=== PATIENT | male | born 1980 | race Caucasian/White ===

== ENCOUNTER 2016-12-28 21:58 | Observation (INO) | payer SELFPAY ==
[~2016-12-28] VITALS: Ht 172.7 cm; Wt 90.0 kg
[~2016-12-28 21:58] MED LIST: AMOX875 PO
[2016-12-28] MEDS ORDERED: SODIUM CHLORIDE 0.9% FLUSH 5 ML FLUSH IV FLUSH PRN (22:00)
[2016-12-28] MEDS ORDERED: SODIUM CHLOR 0.9% 1000 ML INJ 1,000 ML IV SCH (22:00)
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
--- NOTE | 2016-12-28 22:19 | RADRPT ---
EXAM DATE/TIME: 12/28/2016 22:04 [facility] COMPARISON: No previous studies available for comparison. INDICATIONS : Sycopal episode and shortness of breath. MEDICAL HISTORY : None. SURGICAL HISTORY : None. ENCOUNTER: Initial ACUITY: 1 day PAIN SCORE: 0/10 LOCATION: chest FINDINGS: A single view of the chest demonstrates the lungs to be symmetrically aerated without evidence of mas s, infiltrate or effusion. The cardiomediastinal contours are unremarkable. Osseous structures are intact. CONCLUSION: No evidence of acute cardiopulmonary disease. Pete Clement MD on December 28, 2016 at 22:18 Board Certified Radiologist. This report was verified electronically.
[2016-12-28 22:47] LABS: BASOPHIL # 0.3 TH/MM3 (0-0.2); BASOPHIL % 2.7 % (0.0-2.0); EOSINOPHIL % 0.2 % (0.0-4.0); HEMATOCRIT 48.8 % (39.0-51.0); HEMO FLAGS DIFF FINAL; LYMPH % 9.4 % (9.0-44.0); LYMPHOCYTE # 1.1 TH/MM3 (1.0-4.8); MEAN CELL VOLUME 89.8 FL (80.0-100.0); MEAN CORPUSCULAR HEMOGLOBIN 30.3 PG (27.0-34.0); MEAN CORPUSCULAR HGB CONC 33.7 % (32.0-36.0); MONO % 3.8 % (0.0-8.0); NEUT % 83.9 % (16.0-70.0); PLATELET COUNT 251 TH/MM3 (150-450); RED BLOOD COUNT 5.44 MIL/MM3 (4.50-5.90); RED CELL DISTRIBUTION WIDTH 13.2 % (11.6-17.2); WHITE BLOOD COUNT 11.9 TH/MM3 (4.0-11.0)
[2016-12-28 22:48] VITALS: BP 132/82; PULSE 96; RESP 22; TEMP 98.4; O2SAT 98
[2016-12-28 22:54] VITALS: BP 132/82; PULSE 96; RESP 16; TEMP 98.4; O2SAT 98
[2016-12-28 23:01] LABS: ALT (GPT) 30 U/L (12-78); ANION GAP 19 MEQ/L (5-15); AST (GOT) 24 U/L (15-37); BICARBONATE 16.6 MEQ/L (21.0-32.0); BLOOD UREA NITROGEN 14 MG/DL (7-18); CHLORIDE 102 MEQ/L (98-107); GLOMERULAR FILTRATION RATE 56 ML/MIN (>89); POTASSIUM 3.6 MEQ/L (3.5-5.1); SODIUM (NA) 138 MEQ/L (136-145)
[2016-12-28 23:02] LABS: APTT (PATIENT) 25.6 SEC (24.3-30.1); PROTHROMBIN TIME - PATIENT 11.6 SEC (9.8-11.6)
[2016-12-28 23:11] LABS: ALCOHOL LESS THAN 3 MG/DL (0-5); ALKALINE PHOSPHATASE 65 U/L (45-117); CREATINE KINASE 162 U/L (39-308); TOTAL BILIRUBIN ADULT 0.5 MG/DL (0.2-1.0)
--- NOTE | 2016-12-28 23:13 | RADRPT ---
EXAM DATE/TIME: 12/28/2016 22:48 [facility] COMPARISON: No previous studies available for comparison. INDICATIONS : Altered mental status. RADIATION DOSE: 56.35 CTDIvol (mGy) MEDICAL HISTORY : gallstones SURGICAL HISTORY : None. ENCOUNTER: Initial ACUITY: 1 day PAIN SCALE: 0/10 LOCATION: cranial TECHNIQUE: Multiple contiguous axial images were obtained of the head. Using automated exposure control and adj ustment of the mA and/or kV according to patient size, radiation dose was kept as low as reasonably a chievable to obtain optimal diagnostic quality images. DICOM format image data is available electro nically for review and comparison. FINDINGS: CEREBRUM: The ventricles are normal for age. No evidence of midline shift, mass lesion, hemorrhage or acute in farction. No extra-axial fluid collections are seen. POSTERIOR FOSSA: The cerebellum and brainstem are intact. The 4th ventricle is midline. The cerebellopontine angle i s unremarkable. EXTRACRANIAL: The visualized portion of the orbits is intact. SKULL: The calvaria is intact. No evidence of skull fracture. CONCLUSION: 1. No acute intracranial abnormalities. Mucosal thickening right maxillary sinus. Paxton Fam MD on December 28, 2016 at 23:07 Board Certified Radiologist. This report was verified electronically.
[2016-12-28 23:15] LABS: BLOOD GAS BASE EXCESS -2.1 mmol/L (-2-2); BLOOD GAS CARBOXYHEMOGLOBIN 1.1 % (0-4); BLOOD GAS HCO3 21 mmol/L (22-26); BLOOD GAS METHEMOGLOBIN 0.7 % (0-2); BLOOD GAS O2 HGB SATURATION 95 % (90-100); BLOOD GAS OXYGEN CONTENT 21.2 Vol % (12.0-20.0); BLOOD GAS PCO2 32 mmHg (38-42); BLOOD GAS PO2 87 mmHG (61-120); BLOOD GAS TOTAL HGB 15.8 G/DL (12.0-16.0); TEMP CORR TO 98.6
[2016-12-28 23:16] LABS: CRITICAL VALUE NO
[2016-12-28 23:17] LABS: DRAW SITE RT RADIAL; FIO2 21 %; NUMBER OF ARTERIAL PUNCTURES 1; OXYGEN DEVICE RA; STAT YES; ULNAR PULSE PRESENT
[2016-12-28] MEDS ORDERED: SODIUM CHLOR 0.9% 1000 ML INJ 1,000 ML IV ONE (23:30)
[2016-12-29] MEDS ORDERED: NALOXONE HCL 0.4 MG/ML AMP IV PUSH PRN
[2016-12-29] MEDS ORDERED: LORazepam 2 MG/ML VIAL IV PUSH PRN
[2016-12-29] MEDS ORDERED: SODIUM CHLORIDE 0.9% FLUSH 10 ML FLUSH IV FLUSH PRN
[2016-12-29] MEDS: SODIUM CHLOR 0.9% 1000 ML INJ 1,000 ML IV SCH ×2 (01:32→09:08)
[2016-12-29 02:02] VITALS: BP 137/80; PULSE 80; RESP 16; O2SAT 97
[2016-12-29 02:12] LABS: LACTIC ACID GHOST NOT REPORTABLE
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
[2016-12-29 06:43] VITALS: PULSE 69
[2016-12-29 07:26] VITALS: BP 118/64; PULSE 75; RESP 16; TEMP 98.4; O2SAT 97
[2016-12-29 08:15] VITALS: PULSE 58
[2016-12-29] MEDS ORDERED: SODIUM CHLORIDE 0.9% FLUSH 10 ML FLUSH IV FLUSH SCH (09:00)
[2016-12-29 12:03] VITALS: BP 144/89; PULSE 79; RESP 16; TEMP 98.1; O2SAT 98
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
[2016-12-29 13:03] LABS: AUTOMATED NEUTROPHIL # 8.6 TH/MM3 (1.8-7.7); BASOPHIL % 0.4 % (0.0-2.0); EOSINOPHIL # 0.1 TH/MM3 (0-0.4); EOSINOPHIL % 0.6 % (0.0-4.0); HEMATOCRIT 46.3 % (39.0-51.0); HEMO FLAGS DIFF FINAL; LYMPH % 15.8 % (9.0-44.0); LYMPHOCYTE # 1.8 TH/MM3 (1.0-4.8); MEAN CELL VOLUME 89.2 FL (80.0-100.0); MEAN CORPUSCULAR HEMOGLOBIN 30.1 PG (27.0-34.0); MEAN CORPUSCULAR HGB CONC 33.7 % (32.0-36.0); MONO % 10.2 % (0.0-8.0); PLATELET COUNT 220 TH/MM3 (150-450); RED BLOOD COUNT 5.19 MIL/MM3 (4.50-5.90); RED CELL DISTRIBUTION WIDTH 13.1 % (11.6-17.2); WHITE BLOOD COUNT 11.7 TH/MM3 (4.0-11.0)
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
[2016-12-29 13:24] LABS: POTASSIUM 3.4 MEQ/L (3.5-5.1)
[2016-12-29] MEDS ORDERED: POTASSIUM CHLORIDE 20 MEQ CONTROLLED RELEASE TAB PO ONE (13:45)
--- NOTE | 2016-12-29 21:35 | MG ---
cc: BRIAN NARAYAN Lab No: [id number] Date: 12/29/16 Age: 36 Sex: M Race: HISTORY Possible seizure activity, gallstones, concussion. DESCRIPTION A 9-10 Hz 60 microvolt symmetric posterior rhythm is seen. The recording overall is synchronous and symmetric and appears quite normal. Photic stimulation was performed without significant posterior driving. ___ is performed with good effort without change in the background. IMPRESSION Normal awake EEG. No evidence for focal or diffuse abnormality. Brian Narayan MD DJM/LEROY /9:10 PM /9:29 PM
== END 2016-12-29 14:19 | disposition home or self-care (01) ==
LOC: NEPE 21:58 → NEDA 12-29 00:07 → NEPGCP 12-29 05:20
PROVIDERS: ADMIT Hospitalist; ATTEND Hospitalist
DX: G40.409 Other generalized epilepsy and epileptic syndromes, not intractable, without status epilepticus (principal); E87.2 Acidosis; E86.0 Dehydration; F13.230 Sedative, hypnotic or anxiolytic dependence with withdrawal, uncomplicated; F07.81 Postconcussional syndrome; G43.909 Migraine, unspecified, not intractable, without status migrainosus; R06.02 Shortness of breath; R55 Syncope and collapse
CPT/HCPCS: 36600; 70450; 71010; 80048; 80053; 80307; 82550; 82805; 83605; 84443; 85025; 85610; 85730; 95819; 96360; 96361; 99285; G0378; J7030

== ENCOUNTER 2017-09-11 23:26 | Inpatient (IN) | payer OTHER ==
[~2017-09-11] VITALS: Ht 172.7 cm; Wt 77.9 kg
[2017-09-11] MEDS ORDERED: SODIUM CHLOR 0.9% 1000 ML INJ 1,000 ML IV SCH (23:28)
[2017-09-11] MEDS ORDERED: SODIUM CHLORIDE 0.9% FLUSH 10 ML FLUSH IV FLUSH PRN (23:30)
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
[2017-09-11 23:55] VITALS: BP 96/61; PULSE 85; RESP 16; TEMP 97.5; O2SAT 95
--- NOTE | 2017-09-11 23:55 | RADRPT ---
EXAM DATE: 09/11/2017 11:51 PM EDT AGE/SEX: 37 years / Male INDICATIONS: Possible overdose. CLINICAL DATA: This is the patient's initial encounter. Patient reports that signs and symptoms have been present for 1 day and indicates a pain score of Nonresponsive. MEDICAL/SURGICAL HISTORY: Non-responsive. Non-responsive. COMPARISON: No prior exams available for comparison. FINDINGS: Single AP view of the chest. The lungs are clear. Cardiomediastinal silhouette within norm al limits. No evidence of pleural effusion or pneumothorax. CONCLUSION: No acute cardiopulmonary disease identified. Electronically signed by: Reza Smith MD 09/11/2017 11:54 PM EDT
[2017-09-12] VITALS (51 sets, daily range): BP systolic 79–116; BP diastolic 41–76; PULSE 66–90; RESP 9–25; TEMP 97.5–98.7; O2SAT 92–99
[2017-09-12 00:28] LABS: ACETAMINOPHEN LESS THAN 10.0 MCG/ML (10.0-30.0); ALBUMIN 3.6 GM/DL (3.4-5.0); ALKALINE PHOSPHATASE 65 U/L (45-117); ALT (GPT) 56 U/L (12-78); AST (GOT) 56 U/L (15-37); BLOOD UREA NITROGEN 17 MG/DL (7-18); CALCIUM 8.5 MG/DL (8.5-10.1); CHLORIDE 102 MEQ/L (98-107); GLOMERULAR FILTRATION RATE 67 ML/MIN (>89); GLUCOSE,RANDOM 161 MG/DL (74-106); MAGNESIUM 2.3 MG/DL (1.5-2.5); SODIUM (NA) 137 MEQ/L (136-145); TOTAL BILIRUBIN ADULT 0.3 MG/DL (0.2-1.0); TOTAL PROTEIN 7.3 GM/DL (6.4-8.2); TROPONIN I LESS THAN 0.02 NG/ML (0.02-0.05)
[2017-09-12 00:35] LABS: AUTOMATED NEUTROPHIL # 6.6 TH/MM3 (1.8-7.7); BASOPHIL # 0.1 TH/MM3 (0-0.2); BASOPHIL % 0.6 % (0.0-2.0); EOSINOPHIL # 0.2 TH/MM3 (0-0.4); EOSINOPHIL % 1.9 % (0.0-4.0); HEMATOCRIT 41.4 % (39.0-51.0); HEMOGLOBIN 13.9 GM/DL (13.0-17.0); LYMPH % 15.8 % (9.0-44.0); LYMPHOCYTE # 1.4 TH/MM3 (1.0-4.8); MEAN CELL VOLUME 90.9 FL (80.0-100.0); MEAN CORPUSCULAR HEMOGLOBIN 30.4 PG (27.0-34.0); MEAN CORPUSCULAR HGB CONC 33.5 % (32.0-36.0); MEAN PLATELET VOLUME 8.1 FL (7.0-11.0); MONO % 5.6 % (0.0-8.0); MONOCYTE # 0.5 TH/MM3 (0-0.9); NEUT % 76.1 % (16.0-70.0); PLATELET COUNT 214 TH/MM3 (150-450); RED BLOOD COUNT 4.56 MIL/MM3 (4.50-5.90); RED CELL DISTRIBUTION WIDTH 12.5 % (11.6-17.2); WHITE BLOOD COUNT 8.8 TH/MM3 (4.0-11.0)
[2017-09-12 00:51] LABS: INTERNATIONAL NORMALIZED RATIO 1.2 RATIO; PROTHROMBIN TIME - PATIENT 11.8 SEC (9.8-11.6)
[2017-09-12] MEDS ORDERED: NALOXONE HCL 0.4 MG/ML AMP IV PUSH ONE (01:00)
[2017-09-12] MEDS ORDERED: SODIUM CHLOR 0.9% 1000 ML INJ 1,000 ML IV ONE ×3 (01:00→02:00)
--- NOTE | 2017-09-12 01:18 | RADRPT ---
EXAM DATE: 09/12/2017 12:49 AM EDT AGE/SEX: 37 years / Male INDICATIONS: Altered mental status; slurred speech. Post code; possible overdose. CLINICAL DATA: This is the patient's initial encounter. Patient reports that signs and symptoms have been present for 1 day and indicates a pain score of 0/10. MEDICAL/SURGICAL HISTORY: . Gallstones None. RADIATION DOSE: 52.06 CTDI (mGy) [place] [facility] [place] 12/28/[place]. . TECHNIQUE: CT of the head without contrast. Using automated exposure control and adjustment of the mA and/or kV according to patient size, radiation dose was kept as low as reasonably achievable to ob tain optimal diagnostic quality images. FINDINGS: Cerebrum: The ventricles are normal for age. No evidence of midline shift, mass lesion, hemorrhage or acute infarction. No extraaxial fluid collections are seen. Posterior Fossa: The cerebellum and brainstem are intact. The 4th ventricle is midline. The cerebe llopontine angle is unremarkable. Extracranial: Partial opacification of the ethmoid sinuses bilaterally and the right maxillary sinus . Skull: The calvaria is intact. No evidence of skull fracture. CONCLUSION: 1. No acute intracranial findings. 2. Right-sided maxillary and bilateral ethmoid sinus disease. Electronically signed by: Reza Smith MD 09/12/2017 1:16 AM EDT
[2017-09-12 01:51] LABS: BILIRUBIN, URINE NEG (NEG); BLOOD, URINE NEG (NEG); GLUCOSE,URINE NEG (NEG); KETONE, URINE NEG (NEG); NITRITE,URINE NEG (NEG); URINE COLOR YELLOW (YELLW/STRAW); URINE LEUKOCYTE ESTERASE NEG (NEG)
[2017-09-12 02:00] LABS: RBC, URINE 0-2 /hpf (0-3); SQUAMOUS EPITHELIAL CELL URINE 0-5 /hpf (0-5); WBC, URINE 0-2 /hpf (0-5)
[2017-09-12] MEDS ORDERED: RESP: ALBUTEROL 2.5 MG/IPRATROPIUM 0.5 MG NEB (PRN) INH (04:15)
[2017-09-12] MEDS ORDERED: ACETAMINOPHEN 325 MG TAB PO PRN (04:15)
[2017-09-12] MEDS ORDERED: SENNOSIDES 8.6 MG TAB PO PRN (04:15)
[2017-09-12] MEDS ORDERED: NURSING INFORMATION XX SCH (04:15)
[2017-09-12] MEDS ORDERED: LACTULOSE SYRUP 20 GM/30 ML CUP PO PRN (04:15)
[2017-09-12] MEDS ORDERED: BISACODYL 10 MG SUPP RECTAL PRN (04:15)
[2017-09-12] MEDS ORDERED: CHLORHEXIDINE GLUCONATE 2 % 1 PACK (2 CLOTHS) TOP PRN (04:15)
[2017-09-12] MEDS ORDERED: MAGNESIUM HYDROXIDE SUSP 30 ML CUP PO PRN (04:15)
[2017-09-12] MEDS ORDERED: ONDANSETRON HCL 4 MG/2 ML VIAL IV PUSH PRN (04:15)
[2017-09-12] MEDS ORDERED: SODIUM CHLORIDE 0.9% FLUSH 10 ML FLUSH IV FLUSH PRN (04:15)
[2017-09-12] MEDS: SODIUM CHLOR 0.9% 1000 ML INJ 1,000 ML IV SCH ×2 (04:28→11:24)
[2017-09-12] MEDS: ENOXAPARIN SODIUM 40 MG/0.4 ML SYRINGE SQ SCH (06:02)
--- NOTE | 2017-09-12 07:49 | HHI.HP ---
HPI Service Critical Care Medicine Primary Care Physician No Primary Care Physician Admission Diagnosis polysubstance overdose; benzodiazepine OD; hypotension Diagnosis: Travel History International Travel<30 Days: No Contact w/Intl Traveler <30 Da: No Traveled to Known Affected Are: No History of Present Illness HPI This is a 37-year-old male that presented to the ED from home after reportedly being found unresponsive by his spouse (who is a RN), per Dr. Barakat's report she stated that he was" blue" she began CPR for several minutes and called 911. The patient received Narcan upon EMS arrival and responded fromGCS 3T to GCS 15, O2 saturations improved to 96- 97%. The patient reports that he remembers smoking weed and then awakening with multiple people around him. Upon admission the patient denied any patient denies any opiate or narcotic use. Patient reported that in August he was given a prescription for narcotic status post surgery and has not taken all of these medications and has several of the oxycodone left. Patient states he does not use heroin. Patient is adamant that he only smoked marijuana. Patient here speaks with slurred speech denies any alcohol consumption. Per paramedics after 1.2 mg of Narcan patient's GCS improved from 3-15 and has reportedly been cooperative. In route to the hospital patient did require supplemental oxygen as his saturations started to trend downwards towards 90-92%, and he subsequently became lethargic. Patient reportedly had been found unresponsive by spouse and fire department initially noted pupils to be pinpoint. The patient informed the ED physician Dr. Barakat that he had taken some friend's Klonopin. In the ED laboratory , patient received 3 L IV fluids and imaging studies were performed. Urine toxicity was positive for benzodiazepines, cocaine and cannabinoids. The patient continued to be extremely lethargic with sonorous ventilation, and concern for possible intubation. Critical care medicine was consulted. Upon my arrival to the ED the patient was noted to have O2 saturation of 87-88% on 6 L nasal cannula, the patient was arousable with stimulation, noted slurred speech. History PFSH Past Medical History Narrative Medical Gallstones; repair of arterial injury left hand; marijuana use; nursing notes reviewed Blood Disorders: No Cardiovascular Problems: No Diminished Hearing: No Endocrine: No Gastrointestinal Disorders: Yes (GALLSTONES) Genitourinary: No Musculoskeletal: No Neurologic: No Psychiatric: No Reproductive: No Respiratory: No Immunizations Current: No Past Surgical History Other Surgery: Yes (ARTERIAL REPAIR FINGER LACERATION) Social History Alcohol Use: No Tobacco Use: No Substance Use: No Allergies-Medications Allergies-Medications (Allergen,Severity, Reaction): Coded Allergies: No Known Allergies (Verified Allergy, Unknown, 09/12/17) Reported Meds & Prescriptions Reported Meds & Active Scripts Active Active Prescriptions or Reported Medications Unobtainable ROS Review of Systems Except as stated in HPI: all other systems reviewed are Neg General / Constitutional: No: Fever, Chills Eyes: No: Visual changes HENT: No: Headaches, Congestion Cardiovascular: No: Chest Pain or Discomfort Respiratory: No: Shortness of Breath Gastrointestinal: No: Vomiting, Abdominal Pain Genitourinary: No: Flank Pain Musculoskeletal: No: Myalgias, Arthralgias Skin: No Rash Neurologic: No: Weakness, Dizziness, Syncope, Focal Abnormalities, Coordination Problem Psychiatric: No: Anxiety Endocrine: No: Heat Intolerance, Cold Intolerance Hematologic/Lymphatic: No: Easy Bruising Physical Exam Vital Signs Vital Signs Date Time Temp Pulse Resp B/P (MAP) Pulse Ox O2 Delivery O2 Flow Rate FiO2 09/12/17 07:18 71 18 97/59 (72) 94 Room Air 09/12/17 06:46 72 16 93/56 (68) 93 Nasal Cannula 6.00 09/12/17 06:30 71 16 91/61 (71) 92 Nasal Cannula 6.00 09/12/17 06:15 72 14 101/60 (74) 94 Nasal Cannula 6.00 09/12/17 06:00 90 14 112/71 (85) 92 Nasal Cannula 4.00 09/12/17 05:45 66 14 90/76 (81) 94 Nasal Cannula 4.00 09/12/17 05:30 68 16 94/63 (73) 94 Nasal Cannula 4.00 09/12/17 05:16 68 16 98/61 (73) 94 Nasal Cannula 4.00 09/12/17 05:00 69 16 105/52 (69) 93 Nasal Cannula 4.00 09/12/17 04:45 68 16 88/60 (69) 93 Nasal Cannula 4.00 09/12/17 04:30 68 16 98/62 (74) 94 Nasal Cannula 4.00 09/12/17 04:15 70 16 79/61 (67) 94 Nasal Cannula 4.00 09/12/17 04:00 72 16 96/58 (71) 94 Nasal Cannula 4.00 09/12/17 03:45 72 16 90/59 (69) 94 Nasal Cannula 4.00 09/12/17 03:30 73 16 88/61 (70) 94 Nasal Cannula 4.00 09/12/17 03:16 74 14 97/53 (68) 92 Nasal Cannula 3.00 09/12/17 03:01 76 14 89/60 (70) 94 Nasal Cannula 2.00 09/12/17 02:47 74 16 97/69 (78) 96 Nasal Cannula 2.00 09/12/17 02:31 77 14 90/69 (76) 96 Nasal Cannula 2.00 09/12/17 02:16 84 14 97/64 (75) 97 Nasal Cannula 2.00 09/12/17 01:55 76 14 85/55 (65) 99 Nasal Cannula 2.00 80/60 (67) 09/12/17 01:33 96/60 (72) 09/12/17 01:08 74 14 85/45 (58) 96 Nasal Cannula 2.00 09/12/17 01:00 75 14 80/41 (54) 97 Nasal Cannula 2.00 09/12/17 00:58 76 14 85/55 (65) 93 Nasal Cannula 2.00 09/12/17 00:16 16 93 Room Air 09/12/17 00:00 92/54 (67) 86/56 (66) 09/11/17 23:55 Nasal Cannula 2.00 09/11/17 23:55 97.5 85 16 96/61 (73) 95 Laboratory Laboratory Tests Test 09/11/17 23:38 09/12/17 00:15 09/12/17 01:40 09/12/17 06:13 White Blood Count 8.8 Red Blood Count 4.56 Hemoglobin 13.9 Hematocrit 41.4 Mean Corpuscular Volume 90.9 Mean Corpuscular Hemoglobin 30.4 Mean Corpuscular Hemoglobin Concent 33.5 Red Cell Distribution Width 12.5 Platelet Count 214 Mean Platelet Volume 8.1 Neutrophils (%) (Auto) 76.1 Lymphocytes (%) (Auto) 15.8 Monocytes (%) (Auto) 5.6 Eosinophils (%) (Auto) 1.9 Basophils (%) (Auto) 0.6 Neutrophils # (Auto) 6.6 Lymphocytes # (Auto) 1.4 Monocytes # (Auto) 0.5 Eosinophils # (Auto) 0.2 Basophils # (Auto) 0.1 CBC Comment DIFF FINAL Differential Comment Prothrombin Time 11.8 Prothromb Time International Ratio 1.2 Activated Partial Thromboplast Time 25.5 Blood Urea Nitrogen 17 Creatinine 1.20 Random Glucose 161 Total Protein 7.3 Albumin 3.6 Calcium Level 8.5 Magnesium Level 2.3 Alkaline Phosphatase 65 Aspartate Amino Transf (AST/SGOT) 56 Alanine Aminotransferase (ALT/SGPT) 56 Total Bilirubin 0.3 Sodium Level 137 Potassium Level 4.6 Chloride Level 102 Carbon Dioxide Level 27.0 Anion Gap 8 Estimat Glomerular Filtration Rate 67 Ammonia 31 Troponin I LESS THAN 0.02 LESS THAN 0.02 Salicylates Level 2.6 Acetaminophen Level LESS THAN 10.0 Ethyl Alcohol Level LESS THAN 3 Lactic Acid Level 1.6 Urine Color YELLOW Urine Turbidity CLEAR Urine pH 6.0 Urine Specific [place] 1.025 Urine Protein NEG Urine Glucose (UA) NEG Urine Ketones NEG Urine Occult Blood NEG Urine Nitrite NEG Urine Bilirubin NEG Urine Urobilinogen 0.2 Urine Leukocyte Esterase NEG Urine RBC 0-2 Urine WBC 0-2 Urine Squamous Epithelial Cells 0-5 Urine Bacteria NONE Microscopic Urinalysis Comment CULT NOT INDICATED Urine Opiates Screen NEG Urine Barbiturates Screen NEG Urine Amphetamines Screen NEG Urine Benzodiazepines Screen POS Urine Cocaine Screen POS Urine Cannabinoids Screen POS Date/Time Source Procedure Growth Status 09/11/17 00:15 Blood Peripheral Aerobic Blood Culture Pending Received 09/11/17 00:15 Blood Peripheral Anaerobic Blood Culture Pending Received Result Diagram: 09/11/[id number]/11/172337 Imaging Last Impressions Head CT 09/12/172327 Signed Impressions: CONCLUSION: 1. No acute intracranial findings. 2. Right-sided maxillary and bilateral ethmoid sinus disease. Chest X-Ray 09/11/172327 Signed Impressions: CONCLUSION: No acute cardiopulmonary disease identified. Septic Shock Reassessment Septic shock perfusion: reassessment completed Caprini VTE Risk Assessment Caprini VTE Risk Assessment: Mod/High Risk (score >= 2) Caprini Risk Assessment Model Point Value = 1 Point Value = 2 Point Value = 3 Point Value = 5 Age 41-60 Minor surgery BMI > 25 kg/m2 Swollen legs Varicose veins or History of unexplained or recurrent spontaneous Oral contraceptives or hormone replacement Sepsis (< 1 month) Serious lung disease, including pneumonia (< 1 month) Abnormal pulmonary function Acute myocardial infarction Congestive heart failure (< 1 month) History of inflammatory bowel disease Medical patient at bed rest Age 61-74 Arthroscopic surgery Major open surgery (> 45 min) Laparoscopic surgery (> 45 min) Malignancy Confined to bed (> 72 hours) Immobilizing plaster cast Central venous access Age >= 75 History of VTE Family history of VTE Factor V Leiden Prothrombin [id number] Lupus anticoagulant Anticardiolipin antibodies Elevated serum homocysteine Heparin-induced thrombocytopenia Other congenital or acquired thrombophilia Stroke (< 1 month) Elective arthroplasty Hip, pelvis, or leg fracture Acute spinal cord injury (< 1 month) Prophylaxis Regimen Total Risk Factor Score Risk Level Prophylaxis Regimen 0-1 Low Early ambulation 2 Moderate Order ONE of the following: *Sequential Compression Device (SCD) *Heparin 5000 units SQ BID 3-4 Higher Order ONE of the following medications: *Heparin 5000 units SQ TID *Enoxaparin/Lovenox 40 mg SQ daily (WT < 150 kg, CrCl > 30 mL/min) *Enoxaparin/Lovenox 30 mg SQ daily (WT < 150 kg, CrCl > 10-29 mL/min) *Enoxaparin/Lovenox 30 mg SQ BID (WT < 150 kg, CrCl > 30 mL/min) AND/OR *Sequential Compression Device (SCD) 5 or more Highest Order ONE of the following medications: *Heparin 5000 units SQ TID (Preferred with Epidurals) *Enoxaparin/Lovenox 40 mg SQ daily (WT < 150 kg, CrCl > 30 mL/min) *Enoxaparin/Lovenox 30 mg SQ daily (WT < 150 kg, CrCl > 10-29 mL/min) *Enoxaparin/Lovenox 30 mg SQ BID (WT < 150 kg, CrCl > 30 mL/min) AND *Sequential Compression Device (SCD) Assessment and Plan Assessment and Plan Assessment This is a 37-year-old male status ingestion of multiple substances, unable to ascertain at this time whether it was intentional. Patient noted to have a decreased level of consciousness, concern for possible intubation/further deterioration. Admit to ICU. Plan by systems: Neurologic: Polysubstance abuse Monitor neuro status per ICU protocol Avoid any sedative type medications Patient positive for benzodiazepines, cocaine, cannabinoids Obtain psychiatry consult Respiratory: Maintain O2 saturation greater than 92% Initiate high flow nasal cannula, and wean as tolerated Duo nebs every 4 hours as needed for wheezing Cardiovascular: Telemetry sinus rhythm Maintain map greater than 65 Initial troponin 0.02 Renal: No Pierson indicated at this time. May place condom catheter if necessary strict bedrest -- Strict I/Os FEN/GI: Maintain n.p.o. status Bowel regimen Heme/ID: Hemoglobin stable Endocrine: Glucose monitoring per ICU protocol -- SSI Prophylaxis: GI Prophylaxis Famotidine DVT Prophylaxis -- SCDs Lovenox Lines: Peripheral IVs 2 Dispo: my billing statement This patient remains critically ill with one or more organ systems which are or may become a threat to life. I have spent in excess of 31 minutes discontinuously in the care and management of this patient. This time is exclusive of procedures, and includes, but is not limited to, evaluation of the patient, review of the medical record, discussions with family, consultants, nursing staff, or respiratory therapy, and documentation in the medical record. Code Status FULL Discussed Condition With Dr. Barakat. No family at bedside Vanessa Azevedo MD Sep 12, 2017 07:49
[2017-09-12] MEDS: SODIUM CHLORIDE 0.9% FLUSH 10 ML FLUSH IV FLUSH SCH ×2 (07:53→20:07)
[2017-09-12] MEDS: DOCUSATE SODIUM 50 MG/SENNA 8.6 MG TAB PO SCH ×2 (08:00→20:07)
--- NOTE | 2017-09-12 08:05 | EKG ---
Date Performed: 09/11/2017 Time Performed: 23:53:41 PTAGE: 37 years EKG: Sinus rhythm WITH FIRST DEGREE AV BLOCK ABNORMAL ECG NO PREVIOUS TRACING DOCTOR: Vic Purvis Interpretating Date/Time 09/12/2017 08:03:57
[2017-09-12] MEDS: DEXT 5%-NACL 0.9% 1000 ML INJ 1,000 ML IV SCH ×2 (13:37→21:39)
[2017-09-13] VITALS (22 sets, daily range): BP systolic 100–185; BP diastolic 58–99; PULSE 66–86; RESP 11–27; TEMP 97.8–99; O2SAT 94–99
[2017-09-13] MEDS ORDERED: CHLORHEXIDINE GLUCONATE 2 % 1 PACK (2 CLOTHS) TOP SCH (04:00)
[2017-09-13 04:41] LABS: AUTOMATED NEUTROPHIL # 7.6 TH/MM3 (1.8-7.7); BASOPHIL # 0.1 TH/MM3 (0-0.2); BASOPHIL % 0.8 % (0.0-2.0); EOSINOPHIL # 0.2 TH/MM3 (0-0.4); EOSINOPHIL % 1.7 % (0.0-4.0); HEMATOCRIT 40.1 % (39.0-51.0); HEMOGLOBIN 13.2 GM/DL (13.0-17.0); LYMPHOCYTE # 1.3 TH/MM3 (1.0-4.8); MEAN CELL VOLUME 90.5 FL (80.0-100.0); MEAN CORPUSCULAR HEMOGLOBIN 29.7 PG (27.0-34.0); MEAN CORPUSCULAR HGB CONC 32.8 % (32.0-36.0); MEAN PLATELET VOLUME 8.1 FL (7.0-11.0); MONO % 5.3 % (0.0-8.0); MONOCYTE # 0.5 TH/MM3 (0-0.9); NEUT % 79.2 % (16.0-70.0); PLATELET COUNT 182 TH/MM3 (150-450); RED BLOOD COUNT 4.43 MIL/MM3 (4.50-5.90); RED CELL DISTRIBUTION WIDTH 12.3 % (11.6-17.2); WHITE BLOOD COUNT 9.7 TH/MM3 (4.0-11.0)
[2017-09-13 04:55] LABS: INTERNATIONAL NORMALIZED RATIO 1.2 RATIO; PROTHROMBIN TIME - PATIENT 11.9 SEC (9.8-11.6)
[2017-09-13 04:59] LABS: ALBUMIN 2.9 GM/DL (3.4-5.0); ALT (GPT) 33 U/L (12-78); AST (GOT) 17 U/L (15-37); BICARBONATE 25.5 MEQ/L (21.0-32.0); BLOOD UREA NITROGEN 7 MG/DL (7-18); CHLORIDE 107 MEQ/L (98-107); CREATININE 0.83 MG/DL (0.60-1.30); GLOMERULAR FILTRATION RATE 103 ML/MIN (>89); GLUCOSE,RANDOM 117 MG/DL (74-106); MAGNESIUM 1.9 MG/DL (1.5-2.5); PHOSPHORUS 2.4 MG/DL (2.5-4.9); SODIUM (NA) 140 MEQ/L (136-145); TOTAL BILIRUBIN ADULT 0.5 MG/DL (0.2-1.0)
[2017-09-13 05:01] LABS: ALKALINE PHOSPHATASE 53 U/L (45-117); TOTAL PROTEIN 6.1 GM/DL (6.4-8.2)
[2017-09-13] MEDS: DEXT 5%-NACL 0.9% 1000 ML INJ 1,000 ML IV SCH (05:24)
[2017-09-13] MEDS: ENOXAPARIN SODIUM 40 MG/0.4 ML SYRINGE SQ SCH (05:25)
--- NOTE | 2017-09-13 07:26 | PD.PSY.CON ---
Provisional Diagnosis Admission Date Sep 12, 2017 at 02:21 [place] I. Adjustment disorder with depressed mood, polysubstance dependence, including cannabis, cocaine, benzos [place] II. Deferred [place] III. Seizures, lumbar pain [place] IV. Recent of a friend, a stress at work, couple conflict [place] V. 60 History of Present Illness Service Psychiatry Consult Requested By Medicine Reason for Consult Overdose Primary Care Physician No Primary Care Physician HPI The patient is 37-year-old man, domiciled with his in [place], no kids, actively employed chiropractor, 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 Barakat's report "she stated that he was" blue" she began CPR for several minutes and called 911. The patient received Narcan upon EMS arrival and responded from GCS 3T to GCS 15, O2 saturations improved to 96- 97%. The patient reports that he remembers smoking weed and then awakening with multiple people around him". "Upon admission the patient denied any patient denies any opiate or narcotic use. Patient reported that in August he was given a prescription for narcotic status post surgery and has not taken all of these medications and has several of the oxycodone left. Patient states he does not use heroin. Patient is adamant that he only smoked marijuana. Patient here speaks with slurred speech denies any alcohol consumption". Per paramedics after 1.2 mg of Narcan patient's GCS improved from 3-15 and has reportedly been cooperative. In route to the hospital patient did require supplemental oxygen as his saturations started to trend downwards towards 90-92%, and he subsequently became lethargic. Patient reportedly had been found unresponsive by spouse and fire department initially noted pupils to be pinpoint. The patient informed the ED physician Dr. Barakat that he had taken some friend's Klonopin. In the ED laboratory , patient received 3 L IV fluids and imaging studies were performed. Urine toxicity was positive for benzodiazepines, cocaine and cannabinoids. Patient was consulted to psychiatry to address a potential suicidal overdose as well as address the need of a potential psychiatric intervention. EMR was reviewed. The case was widely discussed with critical care and medical team, as well as nurse in charge. On psychiatric evaluation at the beginning the patient is oppositional , irritable, inquiring why he had to be seen by a psychiatrist. The patient says that he is now here for psychiatric problems. He says that he was actually very happy, in a green party with friends "use some drugs to have fun" and he is not depressed. With redirection and reassurance the patient open up is able to talk about his drug use as well as stress and emotions in recent days. For example, the patient states that he has been stressed because one friend had recently and definitely it has been affecting him. 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 In the last weeks he has been also facing several disagreement with his and the stress level moderate otherwise has been high. For this reason, he states, he had needed escape "once in a while I use marihuana and pills provided by a friend". He persistently and consistently is playing and reexplain that he is not a drug addict, he is a very functional person in the society, never had any drug issues, he has used cocaine sometimes in a special occasions. Other than his stress, feeling overwhelmed at times, the patient denies any hopelessness, helplessness, anhedonia, lack of motivation, poor energy, decreased sleep, mood swings, suicidal and homicidal ideation. Patient denies visual and auditory hallucinations. He is fully oriented 3, no attention deficit, no fluctuation of consciousness, no paranoia, no delusions are present. He reports almost daily daily use of marijuana, occasional use of alcohol, occasional use of cocaine, occasional use of benzodiazepines. Review of Systems Constitutional: DENIES: Diaphoretic episodes, Fatigue, Fever, Weight gain, Weight loss, Chills, Dizziness, Change in appetite, Night Sweats Endocrine: DENIES: Heat/cold intolerance, Polydipsia, Polyuria, Polyphagia Eyes: DENIES: Blurred vision, Diplopia, Eye inflammation, Eye pain, Vision loss , Photosensitivity, Double Vision Ears, nose, mouth, throat: DENIES: Tinnitus, Hearing loss, Vertigo, Nasal discharge, Oral lesions, Throat pain, Hoarseness, Ear Pain, Running Nose, Epistaxis, Sinus Pain, Toothache, Odynophagia Respiratory: DENIES: Apneas, Cough, Snoring, Wheezing, Hemoptysis, Sputum production, Shortness of breath Cardiovascular: DENIES: Chest pain, Palpitations, Syncope, Dyspnea on Exertion , PND, Lower Extremity Edema, Orthopnea, Claudication Gastrointestinal: DENIES: Abdominal pain, Black stools, Bloody stools, Constipation, Diarrhea, Nausea, Vomiting, Difficulty Swallowing, Anorexia Genitourinary: DENIES: Sexual dysfunction, Urinary frequency, Urinary incontinence, Urgency, Hematuria, Dysuria, Nocturia, Penile Discharge, Testicular Pain, Testicular Swelling Musculoskeletal: DENIES: Joint pain, Muscle aches, Stiffness, Joint Swelling, Back pain, Neck pain Integumentary: DENIES: Abnormal pigmentation, Nail changes, Pruritus, Rash Hematologic/lymphatic: DENIES: Bruising, Lymphadenopathy Immunologic/allergic: DENIES: Eczema, Urticaria Neurologic: DENIES: Abnormal gait, Headache, Localized weakness, Paresthesias, Seizures, Speech Problems, Tremor, Poor Balance Psychiatric: DENIES: Anxiety, Confusion, Mood changes, Depression, Hallucinations, Agitation, Suicidal Ideation, Homicidal Ideation, Delusions Past Family Social History Coded Allergies: No Known Allergies (Verified Allergy, Unknown, 09/12/17) Unable to Obtain Active Prescriptions or Reported Meds Current Medications Medications (Trade) Dose Ordered Sig/Asha Route Start Time Stop Time Status Last Admin (NS Flush) 2 ml UNSCH PRN IV FLUSH 09/12/17 04:15 (NS Flush) 2 ml BID IV FLUSH 09/12/17 09:00 (Tylenol) 650 mg Q6H PRN PO 09/12/17 04:15 09/12/17 20:07 (Zofran Inj) 4 mg Q6H PRN IV PUSH 09/12/17 04:15 09/12/17 06:02 (Duoneb Neb) 1 ampule Q2HR NEB PRN INH 09/12/17 04:15 (Lovenox Inj) 40 mg Q24H SQ 09/12/17 06:00 09/12/17 06:02 ([facility] Information) 1 Q361D XX 09/12/17 04:15 (Chlorhexidine 2% Cloth) 3 pack Taper DAILY@04 TOP 09/13/17 04:00 09/09/18 03:59 09/13/17 04:00 (Chlorhexidine 2% Cloth) 3 pack UNSCH PRN TOP 09/12/17 04:15 (Clarita-Colace) 1 tab BID PO 09/12/17 09:00 09/12/17 08:00 (Milk Of Magnesia Liq) 30 ml Q12H PRN PO 09/12/17 04:15 (Senokot) 17.2 mg Q12H PRN PO 09/12/17 04:15 (Dulcolax Supp) 10 mg DAILY PRN RECTAL 09/12/17 04:15 (Lactulose Liq) 30 ml DAILY PRN PO 09/12/17 04:15 Dextrose/Sodium Chloride 1,000 ml @ 125 mls/hr Q8H IV 09/12/17 14:15 09/13/17 05:24 Family Psych History No family psychiatric history Social History Patient was born and raised in [facility], he lives in [place] with his , no kids, he is a chiropractor, Patient's Strengths (min. 2) Level of education Physical Exam No tremors, no EPS, no withdrawal symptoms Vital Signs Vital Signs Date Time Temp Pulse Resp B/P (MAP) Pulse Ox O2 Delivery O2 Flow Rate FiO2 09/13/17 06:02 66 09/13/17 06:02 18 100/58 (72) 97 09/13/17 03:29 99.0 09/12/17 19:30 Nasal Cannula 2.00 09/12/17 13:57 40 I/O 09/13/17 09/13/17 09/14/17 08:00 16:00 00:00 Intake Total 1000 ml Balance 1000 ml Lab Results Test 09/12/17 09:55 09/13/17 03:30 09/13/17 04:20 Troponin I LESS THAN 0.02 NG/ML White Blood Count 9.7 TH/MM3 Red Blood Count 4.43 MIL/MM3 Hemoglobin 13.2 GM/DL Hematocrit 40.1 % Mean Corpuscular Volume 90.5 FL Mean Corpuscular Hemoglobin 29.7 PG Mean Corpuscular Hemoglobin Concent 32.8 % Red Cell Distribution Width 12.3 % Platelet Count 182 TH/MM3 Mean Platelet Volume 8.1 FL Neutrophils (%) (Auto) 79.2 % Lymphocytes (%) (Auto) 13.0 % Monocytes (%) (Auto) 5.3 % Eosinophils (%) (Auto) 1.7 % Basophils (%) (Auto) 0.8 % Neutrophils # (Auto) 7.6 TH/MM3 Lymphocytes # (Auto) 1.3 TH/MM3 Monocytes # (Auto) 0.5 TH/MM3 Eosinophils # (Auto) 0.2 TH/MM3 Basophils # (Auto) 0.1 TH/MM3 CBC Comment DIFF FINAL Differential Comment Prothrombin Time 11.9 SEC Prothromb Time International Ratio 1.2 RATIO Activated Partial Thromboplast Time 29.2 SEC Blood Urea Nitrogen 7 MG/DL Creatinine 0.83 MG/DL Random Glucose 117 MG/DL Total Protein 6.1 GM/DL Albumin 2.9 GM/DL Calcium Level 8.0 MG/DL Phosphorus Level 2.4 MG/DL Magnesium Level 1.9 MG/DL Alkaline Phosphatase 53 U/L Aspartate Amino Transf (AST/SGOT) 17 U/L Alanine Aminotransferase (ALT/SGPT) 33 U/L Total Bilirubin 0.5 MG/DL Sodium Level 140 MEQ/L Potassium Level 3.6 MEQ/L Chloride Level 107 MEQ/L Carbon Dioxide Level 25.5 MEQ/L Anion Gap 8 MEQ/L Estimat Glomerular Filtration Rate 103 ML/MIN Date/Time Source Procedure Growth Status 09/11/17 00:15 Blood Peripheral Aerobic Blood Culture Pending Received 09/11/17 00:15 Blood Peripheral Anaerobic Blood Culture Pending Received Mental Status Examination Appearance: Appropriate Consciousness: Alert Orientation: x4 Motor Activity: Normal gait Speech: Unremarkable Language: Adequate Fund of Knowledge: Adequate Attention and Concentration: Adequate Memory: Unremarkable Mood: Irritable Affect: Irritable Thought Process & Associations: Intact Thought Content: Appropriate Hallucination Type: None Delusion Type: None Suicidal Ideation: No Suicidal Plan: No Suicidal Intention: No Homicidal Ideation: No Homicidal Plan: No Homicidal Intention: No Insight: Fair Judgment: Impulsive Assessment & Plan Problem List: (1) Adjustment disorder with depressed mood ICD Codes: F43.21 - Adjustment disorder with depressed mood Assessment & Plan: On my psychiatric evaluation today find a patient that at the beginning is irritable, oppositional, resistant to the interview, but susceptible to redirection and reassurance. The patient initially was reluctant to open up about recent use of multiple drugs, but later in the interview was able to share emotions and some insight of his drug use. He reports to be distressed, at times overwhelmed, sad, irritable, in the context of recent of a friend, a stress at work, economical burden, marital dynamic conflicts. However, he denies anhedonia, denies hopelessness, denies helplessness, denies worthlessness, denies lack of appetite, lack of energy, problems sleeping at night, suicidal and homicidal ideation. The patient denies visual and auditory hallucinations. The patient is logical, coherent and relevant. Oriented 3, no filtration of consciousness, no attention deficit. He is able to share multiple protective factors for depression and suicidality such as future oriented activities, commitment with work, family and social support. This is a patient without no psychiatric history, no previous suicide attempts, no previous psychiatric hospitalizations, but he seems to minimize his drug use, most probably is in a precontemplation state of drug addiction. I have educated the patient extensively about the importance of avoiding illegal recreational drug and trying to engage in more healthy activities in order to escape from work stress. I have recommended to the patient to consider a long-term comprehensive rehabilitation program, but as I say before the patient seems to be in a maladaptive denial of drug use. I Try to introduce some awareness and confrontational/insight oriented therapy. Patient should be in CIWA protocol, has history of seizures that could be related with drug withdrawal in the past, even though he denies. He does not meet criteria for psychiatric admission. Consult appreciated Assessment & Plan Estimated LOS: Brady Carter MD Sep 13, 2017 07:25
[2017-09-13] MEDS: SODIUM CHLORIDE 0.9% FLUSH 10 ML FLUSH IV FLUSH SCH (07:34)
[2017-09-13] MEDS: DOCUSATE SODIUM 50 MG/SENNA 8.6 MG TAB PO SCH (07:34)
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
--- NOTE | 2017-09-13 14:14 | HHI.DS ---
Discharge Summary Admission Date Sep 12, 2017 at 02:21 Discharge Date: Sep 13, 2017 Admitting Diagnosis polysubstance overdose; benzodiazepine OD; hypotension (1) Polysubstance overdose Diagnosis: Principal ICD Codes: T50.901A - Poisoning by unspecified drugs, medicaments and biological substances, accidental (unintentional), initial encounter Status: Acute (2) Adjustment disorder with depressed mood Diagnosis: Principal ICD Codes: F43.21 - Adjustment disorder with depressed mood Status: Acute Brief History The patient is 37-year-old man, domiciled with his in [place], no kids, actively employed chiropractor, 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 Barakat's report "she stated that he was" blue" she began CPR for several minutes and called 911. The patient received Narcan upon EMS arrival and responded from GCS 3T to GCS 15, O2 saturations improved to 96- 97%. The patient reports that he remembers smoking weed and then awakening with multiple people around him". "Upon admission the patient denied any patient denies any opiate or narcotic use. Patient reported that in August he was given a prescription for narcotic status post surgery and has not taken all of these medications and has several of the oxycodone left. Patient states he does not use heroin. Patient is adamant that he only smoked marijuana. Patient here speaks with slurred speech denies any alcohol consumption". Per paramedics after 1.2 mg of Narcan patient's GCS improved from 3-15 and has reportedly been cooperative. In route to the hospital patient did require supplemental oxygen as his saturations started to trend downwards towards 90-92%, and he subsequently became lethargic. Patient reportedly had been found unresponsive by spouse and fire department initially noted pupils to be pinpoint. The patient informed the ED physician Dr. Barakat that he had taken some friend's Klonopin. In the ED laboratory , patient received 3 L IV fluids and imaging studies were performed. Urine toxicity was positive for benzodiazepines, cocaine and cannabinoids. Patient was consulted to psychiatry to address a potential suicidal overdose as well as address the need of a potential psychiatric intervention. EMR was reviewed. The case was widely discussed with critical care and medical team, as well as nurse in charge. On psychiatric evaluation at the beginning the patient is oppositional , irritable, inquiring why he had to be seen by a psychiatrist. The patient says that he is now here for psychiatric problems. He says that he was actually very happy, in a republic[employer] with friends "use some drugs to have fun" and he is not depressed. With redirection and reassurance the patient open up is able to talk about his drug use as well as stress and emotions in recent days. For example, the patient states that he has been stressed because one friend had recently and definitely it has been affecting him. 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 In the last weeks he has been also facing several disagreement with his and the stress level moderate otherwise has been high. For this reason, he states, he had needed escape "once in a while I use marihuana and pills provided by a friend". He persistently and consistently is playing and reexplain that he is not a drug addict, he is a very functional person in the society, never had any drug issues, he has used cocaine sometimes in a special occasions. Other than his stress, feeling overwhelmed at times, the patient denies any hopelessness, helplessness, anhedonia, lack of motivation, poor energy, decreased sleep, mood swings, suicidal and homicidal ideation. Patient denies visual and auditory hallucinations. He is fully oriented 3, no attention deficit, no fluctuation of consciousness, no paranoia, no delusions are present. He reports almost daily daily use of marijuana, occasional use of alcohol, occasional use of cocaine, occasional use of benzodiazepines. CBC/BMP: 09/13/17 0420 09/13/17 0420 Significant Findings Laboratory Tests Test 09/11/17 23:38 09/12/17 00:15 09/12/17 01:40 09/12/17 06:13 Neutrophils (%) (Auto) 76.1 % (16.0-70.0) Prothrombin Time 11.8 SEC (9.8-11.6) Random Glucose 161 MG/DL (74-106) Aspartate Amino Transf (AST/SGOT) 56 U/L (15-37) Estimat Glomerular Filtration Rate 67 ML/MIN (>89) Troponin I LESS THAN 0.02 NG/ML LESS THAN 0.02 NG/ML Salicylates Level 2.6 MG/DL (2.8-20.0) Acetaminophen Level LESS THAN 10.0 MCG/ML Urine Benzodiazepines Screen POS (NEG) Urine Cocaine Screen POS (NEG) Urine Cannabinoids Screen POS (NEG) Test 09/12/17 09:55 09/13/17 03:30 09/13/17 04:20 Troponin I LESS THAN 0.02 NG/ML Red Blood Count 4.43 MIL/MM3 (4.50-5.90) Neutrophils (%) (Auto) 79.2 % (16.0-70.0) Prothrombin Time 11.9 SEC (9.8-11.6) Random Glucose 117 MG/DL (74-106) Total Protein 6.1 GM/DL (6.4-8.2) Albumin 2.9 GM/DL (3.4-5.0) Calcium Level 8.0 MG/DL (8.5-10.1) Phosphorus Level 2.4 MG/DL (2.5-4.9) Pt Condition on Discharge: Good Discharge Disposition: Discharge Home Discharge Instructions DIET: Follow Instructions for: As Tolerated, No Restrictions Activities you can perform: Regular-No Restrictions Follow up Referrals: PCP Follow-up Psychiatry Adult Medication Profile: Unable to Obtain Active Prescriptions or Reported Meds Additional Information Patient is on no prescription medications as an outpatient per He takes multivitamin and various supplements. Mikey Houston MD PhD Sep 13, 2017 14:14
== END 2017-09-13 15:05 | disposition home or self-care (01) | DRG 918 ==
LOC: PHED 23:26 → PHEDA 09-12 02:21 → PHICU 09-12 07:50
PROVIDERS: ADMIT Internal Medicine Critical Care Medicine; ATTEND Internal Medicine Critical Care Medicine
DX: T50.991A Poisoning by other drugs, medicaments and biological substances, accidental (unintentional), initial encounter (principal); I95.9 Hypotension, unspecified; F13.10 Sedative, hypnotic or anxiolytic abuse, uncomplicated; F12.90 Cannabis use, unspecified, uncomplicated; R47.81 Slurred speech; R40.2431 Glasgow coma scale score 3-8, in the field [EMT or ambulance]; R40.4 Transient alteration of awareness; F43.21 Adjustment disorder with depressed mood; F41.9 Anxiety disorder, unspecified; Z63.72 Alcoholism and drug addiction in family
CPT/HCPCS: 70450; 71045; 80053; 80307; 81001; 82140; 82948; 83605; 83735; 84100; 84484; 85025; 85610; 85730; 87040; 87641; 93005; 96361; 96374; J1650; J2310; J2405; J7030; J7042